=== PATIENT | female | born 1950 | race African-American/Black ===

== ENCOUNTER 2018-02-19 19:34 | Inpatient (IN) | payer MEDICARE, MEDICAID ==
[~2018-02-19] VITALS: Ht 152.4 cm; Wt 106.1 kg
[2018-02-19] MEDS ORDERED: NORVASC5 MG PO (19:42)
[2018-02-19] MEDS ORDERED: FUROSEMIDE40 MG PO (19:43)
[2018-02-19] MEDS ORDERED: VOLTAREN75 MG PO (19:43)
[2018-02-19] MEDS ORDERED: FERROUS SULFAT325 MG PO (19:43)
[2018-02-19 20:26] LABS: BASOPHILS 0.2 % (0-2); EOSINOPHILS 1.3 % (0-7); HEMATOCRIT 36.4 % (36.0-48.0); HEMOGLOBIN 11.2 g/dL (12-16); IMMATURE GRANULOCYTES 0.2 % (0-5); LYMPHOCYTES 12.6 % (15-50); MCH 24.6 pg (26.0-34.0); MCHC 30.8 g/dL (31.0-37.0); MEAN PLATELET VOLUME 9.6 fL (7.4-10.4); NEUTROPHILS 79.7 % (40-80); PLATELET COUNT 271 10x3/uL (130-400); RBC 4.55 10x6/uL (4.00-5.40); RDW 16.9 % (11.5-14.5); WBC 5.5 10x3/uL (4.8-10.8)
[2018-02-19 20:45] LABS: INR 0.98 (0.85-1.17); PROTIME 12.6 SECONDS (11.6-15.0)
[2018-02-19 20:52] LABS: ALBUMIN 3.2 g/dL (3.4-5.0); ANION GAP 9.3 mmol/L (8-16); BILIRUBIN - TOTAL 2.32 mg/dL (0.2-1.3); CARBON DIOXIDE 32.1 mmol/L (21.0-32.0); POTASSIUM - SERUM 3.4 mmol/L (3.5-5.1); PROTEIN - SERUM 8.1 g/dL (6.4-8.2)
[2018-02-20 03:06] VITALS: BP 194/74; BMI 45.7
[2018-02-20] MEDS ORDERED: GLIMEPIRIDE4 MG PO (03:27)
[2018-02-20] MEDS ORDERED: GLUCOPHAGE500 MG PO (03:28)
[2018-02-20] MEDS ORDERED: KLOR-CON 1010 MEQ PO (03:28)
[2018-02-20 04:00] VITALS: BP 194/74
[2018-02-20 07:09] LABS: BASOPHILS 0.2 % (0-2); EOSINOPHILS 0.9 % (0-7); HEMATOCRIT 33.4 % (36.0-48.0); HEMOGLOBIN 10.4 g/dL (12-16); IMMATURE GRANULOCYTES 0.8 % (0-5); LYMPHOCYTES 9.3 % (15-50); MCH 24.7 pg (26.0-34.0); MCHC 31.1 g/dL (31.0-37.0); MCV 79.3 fL (80.0-100.0); MEAN PLATELET VOLUME 10.5 fL (7.4-10.4); MONOCYTES 3.5 % (2-11); NEUTROPHILS 85.3 % (40-80); PLATELET COUNT 275 10x3/uL (130-400); RBC 4.21 10x6/uL (4.00-5.40); WBC 6.6 10x3/uL (4.8-10.8)
[2018-02-20 07:15] LABS: ANION GAP 11.1 mmol/L (8-16); CALCIUM 8.6 mg/dL (8.5-10.1); CARBON DIOXIDE 28.9 mmol/L (21.0-32.0)
[2018-02-20 07:16] LABS: CREATININE - SERUM 1.5 mg/dL (0.6-1.3)
[2018-02-20 10:00] VITALS: BMI 45.6
[2018-02-20 10:22] VITALS: BP 129/55
[2018-02-20 10:58] LABS: ALBUMIN 2.9 g/dL (3.4-5.0); BILIRUBIN - DIRECT 1.43 mg/dL (0.00-0.30); BILIRUBIN - INDIRECT 0.26 mg/dL (0.00-1.00); BILIRUBIN - TOTAL 1.69 mg/dL (0.2-1.3); PROTEIN - SERUM 7.1 g/dL (6.4-8.2)
[2018-02-20 11:53] VITALS: Ht 152.4 cm; Wt 106.1 kg
[2018-02-20 15:38] LABS: % SATURATION 26 % (15-55); IRON 72 ug/dl (35-150); TOTAL IRON BIND CAPACITY 269 ug/dl (260-445); UNSAT IRON BIND CAPACITY 197 ug/dl (150-375)
[2018-02-20 22:54] VITALS: BP 132/75
[2018-02-21 05:00] VITALS: BP 179/56
[2018-02-21 08:38] VITALS: BP 190/77
[2018-02-21 10:20] LABS: BASOPHILS 0.5 % (0-2); EOSINOPHILS 6.4 % (0-7); HEMATOCRIT 35.8 % (36.0-48.0); HEMOGLOBIN 10.9 g/dL (12-16); IMMATURE GRANULOCYTES 0.3 % (0-5); LYMPHOCYTES 17.7 % (15-50); MCH 24.8 pg (26.0-34.0); MCHC 30.4 g/dL (31.0-37.0); MEAN PLATELET VOLUME 10.3 fL (7.4-10.4); MONOCYTES 4.7 % (2-11); NEUTROPHILS 70.4 % (40-80); PLATELET COUNT 269 10x3/uL (130-400); RDW 16.7 % (11.5-14.5); WBC 5.9 10x3/uL (4.8-10.8)
[2018-02-21 10:25] LABS: MCV 81.4 fL (80.0-100.0)
[2018-02-21 10:39] LABS: ALBUMIN 2.9 g/dL (3.4-5.0); ANION GAP 8.8 mmol/L (8-16); BILIRUBIN - TOTAL 0.66 mg/dL (0.2-1.3); CARBON DIOXIDE 28.7 mmol/L (21.0-32.0); CREATININE - SERUM 1.2 mg/dL (0.6-1.3); POTASSIUM - SERUM 4.5 mmol/L (3.5-5.1); PROTEIN - SERUM 8.1 g/dL (6.4-8.2)
[2018-02-21 10:45] LABS: CALCIUM 8.7 mg/dL (8.5-10.1)
[2018-02-21 12:09] VITALS: BP 170/80
[2018-02-21 15:23] VITALS: BP 174/78
[2018-02-21 22:44] VITALS: BP 213/67
[2018-02-22 05:06] VITALS: BP 223/91
[2018-02-22 06:41] LABS: BASOPHILS 0.4 % (0-2); EOSINOPHILS 8.5 % (0-7); HEMATOCRIT 35.6 % (36.0-48.0); HEMOGLOBIN 10.8 g/dL (12-16); IMMATURE GRANULOCYTES 0.2 % (0-5); LYMPHOCYTES 14.1 % (15-50); MCH 24.7 pg (26.0-34.0); MCHC 30.3 g/dL (31.0-37.0); MCV 81.3 fL (80.0-100.0); MEAN PLATELET VOLUME 9.8 fL (7.4-10.4); MONOCYTES 6.4 % (2-11); NEUTROPHILS 70.4 % (40-80); PLATELET COUNT 283 10x3/uL (130-400); RBC 4.38 10x6/uL (4.00-5.40); RDW 17.1 % (11.5-14.5); WBC 5.3 10x3/uL (4.8-10.8)
[2018-02-22 07:11] LABS: ALBUMIN 2.9 g/dL (3.4-5.0); ANION GAP 8.6 mmol/L (8-16); BILIRUBIN - DIRECT 0.24 mg/dL (0.00-0.30); BILIRUBIN - INDIRECT 0.22 mg/dL (0.00-1.00); BILIRUBIN - TOTAL 0.46 mg/dL (0.2-1.3); CALCIUM 9.3 mg/dL (8.5-10.1); CARBON DIOXIDE 33.7 mmol/L (21.0-32.0); CREATININE - SERUM 1.3 mg/dL (0.6-1.3); MAGNESIUM - SERUM 2.4 mg/dL (1.8-2.4); POTASSIUM - SERUM 4.3 mmol/L (3.5-5.1); PROTEIN - SERUM 8.1 g/dL (6.4-8.2)
[2018-02-22 09:28] VITALS: BP 206/88
[2018-02-22] MEDS ORDERED: HYDROCODON-ACE1 EAC7 PO (11:13)
[2018-02-22 12:33] VITALS: BP 122/52
[2018-02-22] MEDS ORDERED: CATAPRES0.1 MG PO (14:30)
[2018-02-23] MEDS ORDERED: HYDROCODON-ACE1 EAC7 PO (12:43)
[2018-02-23 13:17] LABS: FOLATE (FOLIC ACID) - SERUM >20.0 ng/mL (>3.0)
== END 2018-02-22 18:18 | disposition home or self-care (01) | DRG 418 ==
LOC: D.ER 19:34 → D.MS 20:54 → D.EDHOLD 20:54 → D.MS 02-20 00:05
PROVIDERS: Family Medicine; Internal Medicine Nephrology; Surgery
PROC: 0FT44ZZ Resection of Gallbladder, Percutaneous Endoscopic Approach (ICD-10-PCS; principal; 2018-02-22 15:15)
DX: K85.10 Biliary acute pancreatitis without necrosis or infection (principal); N17.9 Acute kidney failure, unspecified; Z68.42 Body mass index [BMI] 45.0-49.9, adult; K81.0 Acute cholecystitis; E11.9 Type 2 diabetes mellitus without complications; E66.01 Morbid (severe) obesity due to excess calories; I10 Essential (primary) hypertension; D50.9 Iron deficiency anemia, unspecified